=== PATIENT | male | born 1955 ===

== ENCOUNTER 2019-07-16 10:25 | Emergency (ER) | payer SELFPAY ==
--- NOTE | 2019-07-16 10:57 | UC ---
Dizzy HPI HPI Summary: 3 NIGHTS OF DIZZINESS Especially when he moves his head. it goes away on its own. He urinates normally, denies sob, fever, chest pain, LE swelling. He is not from the [place] and arrived here from [place] May 2019. He is staying w/ a friend. The last time he was at a store or in a public place was 10 days ago. he reports taking 4 meds last year but he wasn't sure for what and did state he thinks he had blood pressure problems but that has resolved per pt. denies etoh use. VIETNAMESE IS NOT HIS FIRST LANGUAGE. - History Of Current Complaint Chief Complaint: UCDizziness Stated Complaint: DIZZY Time Seen by Provider: 07/16/19 10:28 Hx Obtained From: Patient Aggravating Factor(s): Position Change Alleviating Factor(s): Lying Down - Allergies/Home Medications Allergies/Adverse Reactions: Allergies Allergy/AdvReac Type Severity Reaction Status Date / Time No Known Allergies Allergy Verified 07/16/19 10:54 Home Medications: Home Medications Meclizine TAB* [Antivert 12.5 TAB*] 12.5 mg PO TID 7 Days #21 tab 07/16/19 [Rx] PMH/Surg Hx/FS Hx/Imm Hx - Additional Past Medical History Additional PMH: denies chronic conditions. Previously Healthy: Yes - Surgical History Surgical History: Unable to Obtain/Confirm - Family History Known Family History: Positive: Non-Contributory - Social History Occupation: Retired - from the in [employer] Lives: With Family - lives in [facility] but is visiting a friend here and got stuck after pandemic. Review of Systems All Other Systems Reviewed And Are Negative: Yes Constitutional: Negative: Fever, Fatigue Skin: Negative: Rash Respiratory: Negative: Shortness Of Breath, Cough Neurovascular: Positive: Other - DIZZINESS Musculoskeletal: Negative: Edema - LE Neurological/Mental Status: Negative: Headache, Weakness Physical Exam Triage Information Reviewed: Yes Appearance: Well-Appearing Vital Signs Reviewed: Yes Respiratory: Positive: Lungs clear, No respiratory distress Cardiovascular Exam: Normal Neurological: Positive: Alert, Other: - NORMAL SPEECH, CN II-XI GROSSLY INTACT Skin: Negative: Rashes Dizzy Course/Dx - Course Course Of Treatment: iNTERMITTENT dizziness x 3 days which resolve on their own w/ position changes. He does report a hx of htn but stated it resolved. he cannot remember which meds he was taking last yr but thinks NEBULOC was one of them from [place] for his BP but he's not sure. He stopped taking it b/c his blood pressure went away. BS today is WNL, EKG WNL. Appears to be volume related given orthostatics vs. HTN related. [place] is not from the [place] and we discussed s/sx of when to go to the emergency room. Maltese is not first language but we were able to relay to him that if he thought he had COVID-19 his symptoms were not typical and he was low risk to have it but I offered the testing anyway knowing he would have to isolate until the test came back negative. He declined testing. Since symptoms were most consistent w/ vertigo I discussed this w/ him. He wanted medication and although meclizine is not very effective and he wanted meds. we agreed to do this as trial knowing it may not work. - Differential Dx/Diagnosis Differential Diagnosis/HQI/PQRI: Benign Paroxysmal Positional Vertigo, Myocardial Infarction, Other Provider Diagnosis: Hypertension Discharge ED - Sign-Out/Discharge Documenting (check all that apply): Patient Departure All imaging exams completed and their final reports reviewed: No Studies - Discharge Plan Condition: Good Disposition: HOME Prescriptions: Meclizine TAB* [Antivert 12.5 TAB*] 12.5 mg PO TID 7 Days #21 tab Patient Education Materials: Dizziness (ED) Referrals: No Primary Care Phys,NOPCP [Primary Care Provider] - Additional Instructions: PLEASE GO TO THE EMERGENCY ROOM IF THIS WORSENS OR YOU DEVELOP CHEST PAIN, SEVERE HEADACHE. - Billing Disposition and Condition Condition: GOOD Disposition: Home
== END 2019-07-16 11:20 | disposition home or self-care (01) ==
LOC: UCEAST 10:25
DX: I10 Essential (primary) hypertension (principal)
CPT/HCPCS: 93005; 99202; G0463